=== PATIENT | female | born 1945 | race Caucasian/White ===

== ENCOUNTER 2017-06-08 14:04 | Emergency (ER) | payer SELFPAY ==
[~2017-06-08] VITALS: Ht 162.6 cm; Wt 80.7 kg
[2017-06-08] MEDS ORDERED: BENZONATATE 100 MG CAPSULE PO ONE (14:45)
[2017-06-08] MEDS ORDERED: ALBUTEROL SULFATE 2.5 MG/3 ML NEBU NEB ONE (14:45)
[2017-06-08] MEDS ORDERED: HYDROCODONE BIT/HOMATROPINE 5 ML UDC PO ONE (14:45)
[2017-06-08] MEDS ORDERED: ALBUTEROL SULFATE 2.5 MG/3 ML NEBU ONE (15:02)
[2017-06-08] MEDS ORDERED: BENZONATATE 100 MG CAPSULE ONE (15:27)
[2017-06-08] MEDS ORDERED: HYDROCODONE BIT/HOMATROPINE 5 ML UDC ONE (15:28)
--- NOTE | 2017-06-08 15:55 | NUR ---
Patient discharged to home in stable conditon. Written and verbal after care instructions given. Patient verbalizes understanding of instructions.pt walks in steady gait accompanied by son who provided translation from pashto. pt says feels better. less coughing. eubreathing, ra 98%
[2017-06-08 16:13] VITALS: BP 110/69
== END 2017-06-08 15:55 | disposition home or self-care (01) ==
LOC: ER 14:04
DX: J20.8 Acute bronchitis due to other specified organisms (principal); B96.89 Other specified bacterial agents as the cause of diseases classified elsewhere
CPT/HCPCS: 71010; 94640; 99283; A4663